=== PATIENT | male | born 1960 | race Caucasian/White ===

== ENCOUNTER → 2017-06-17 12:32 | Outpatient (CLI) | payer BC, SELFPAY ==
--- NOTE | 2017-06-17 12:36 | XR_ITS ---
XR chest 2V Ordering Physician: Rhona Stinson Patient Age: 57 years: Male HISTORY: ITS.REASON: cough Cough congestion smoker short of breath TECHNIQUE: PA and lateral chest COMPARISON :CXR 2 view September 2016 FINDINGS the lung markings are less pronounced and overall the lungs appear clearer than on previous study September 2016. In retrospect there may have been additional interstitial edema or infiltrate previously which is no longer evident today. There is underlying COPD with hyperexpansion. Hyperlucent lungs particularly towards upper lung cisneros. Areas of minimal linear scarring left upper lung a less evident today. Borderline pleural thickening at the upper right chest. No pleural effusion. Question very subtle relative opacity at the left and right infrahilar region bilaterally but I favor this is baseline for this patient with nothing definitely acute. The heart is normal in size. The left gavin upper normal prominence. Right gavin unremarkable. Mediastinum satisfactory. Chest wall and T-spine appear intact. Small calcified granuloma at left midlung IMPRESSION: Nothing definitely acute. Underlying COPD and chronic changes
== END ==
PROVIDERS: PCP Emergency Medicine; Visit Provider Nurse Practitioner Family
DX: J44.9 Chronic obstructive pulmonary disease, unspecified (principal)
CPT/HCPCS: 71046

== ENCOUNTER → 2017-08-28 13:41 | Outpatient (CLI) | payer BC, SELFPAY ==
--- NOTE | 2017-08-28 13:55 | XR_ITS ---
XR chest 2V HISTORY: COPD exacerbation, difficulty breathing ITS.REASON: COPD, EMPHYSEMA ORDERING PHYSICIAN: Amaya العراقي PATIENT AGE: 57 years COMPARISON: 06/17/2017 FINDINGS: The cardiomediastinal silhouette and pulmonary vascularity are within normal limits. Chronic changes are present with COPD. Faint nodular opacities once again noted left upper lobe similar to 09/16/2016. Old granulomatous disease.. No lobar consolidation or collapse. No acute bony abnormalities. IMPRESSION: COPD with chronic changes. Persistent nodular opacities left upper lobe unchanged. No acute finding
== END ==
PROVIDERS: PCP Nurse Practitioner Family; Visit Provider Nurse Practitioner Family
DX: J44.1 Chronic obstructive pulmonary disease with (acute) exacerbation (principal); J43.9 Emphysema, unspecified
CPT/HCPCS: 71046

== ENCOUNTER → 2017-09-30 09:38 | Outpatient (CLI) | payer BC, SELFPAY ==
[2017-09-30 10:15] VITALS: PULSE 90; PULSE 98
== END ==
PROVIDERS: Family Provider Nurse Practitioner Family; PCP Nurse Practitioner Family; Visit Provider Nurse Practitioner Family
DX: J44.1 Chronic obstructive pulmonary disease with (acute) exacerbation (principal); J43.9 Emphysema, unspecified
CPT/HCPCS: 94060; 94640

== ENCOUNTER 2018-01-06 12:25 | Outpatient (RCR) | payer BC, SELFPAY | END 2018-04-17 16:39 | disposition home or self-care (01) | LOC: PT 12:25 | PROVIDERS: Family Provider Nurse Practitioner Family; PCP Nurse Practitioner Family; Visit Provider Internal Medicine Pulmonary Disease | DX: J44.9 Chronic obstructive pulmonary disease, unspecified (principal) | CPT/HCPCS: G0424 ==

== ENCOUNTER → 2018-01-07 09:37 | Outpatient (POV) | payer BC, SELFPAY | PROVIDERS: Family Provider Nurse Practitioner Family; PCP Nurse Practitioner Family; Visit Provider Internal Medicine | DX: Z00.00 Encounter for general adult medical examination without abnormal findings (principal) ==

== ENCOUNTER → 2018-02-07 09:56 | Outpatient (CLI) | payer BC, SELFPAY | PROVIDERS: PCP Nurse Practitioner Family; Visit Provider Internal Medicine | DX: J44.9 Chronic obstructive pulmonary disease, unspecified (principal) | CPT/HCPCS: 94060; 94618; 94640; 94726; 94729 ==

== ENCOUNTER → 2018-03-24 15:46 | Outpatient (CLI) | payer BC, SELFPAY ==
--- NOTE | 2018-03-24 15:52 | XR_ITS ---
XR chest 2V HISTORY: Short of breath tachycardia. Fluid retention atrophy. ITS.REASON: SOB,TACHYCARDIA ORDERING PHYSICIAN: Amaya العراقي PATIENT AGE: 58 years Technique: PA and lateral chest COMPARISON: 3 03/25 and 08/28/2017 CXR FINDINGS: No significant new findings. The lungs are well expanded and with mild chronic changes. No CHF. The heart is normal in size mild tortuous descending aorta is stable. Hilar regions appear satisfactory. Mild pleural thickening along the upper lateral right chest again noted and stable since previous studies. Small calcified granulomata left lung stable and periphery of the right upper lung appears stable as well Some minor scarring at the left upper lobe stable since 2017. . Chest wall T-spine satisfactory. No pleural effusion or pneumothorax. IMPRESSION:.. Stable chest . Nothing acute. Mild chronic changes
[2018-03-24 18:13] LABS: Basophils # 0.1 K/mm3 (0-0.2); Basophils % 0.6 % (0.1-2.0); Eosinophils # 0.3 K/mm3 (0.0-0.4); Eosinophils % 2.4 % (0.1-12.0); Hematocrit 49.7 % (42.0-52.0); Lymphocytes # 2.6 K/mm3 (0.7-4.5); Lymphocytes % 21.7 % (10-50); Mean Corpuscular HGB Conc 34.3 g/dL (31.8-35.4); Mean Corpuscular Hemoglobin 31.9 pg (27.0-31.2); Mean Platelet Volume 7.6 fl (7.4-10.4); Monocytes # 0.7 K/mm3 (0.1-1.0); Monocytes % 5.4 % (1.7-9.3); Neutrophils # 8.4 K/mm3 (1.8-7.8); Neutrophils % 69.9 % (37.0-80.0); Platelet Count 348 K/mm3 (142-424); Red Blood Count 5.34 M/mm3 (4.60-6.20); Red Cell Distribution Width 13.5 % (11.5-17.5); White Blood Count 12.1 K/mm3 (4.8-10.8)
[2018-03-24 19:46] LABS: Alanine Aminotransferase 38 U/L (12-78); Albumin Level 3.1 gm/dL (3.4-5.0); Albumin/Globulin Ratio 0.9 (1.1-1.8); Alkaline Phosphatase 101 U/L (46-116); Anion Gap 13.1 mEq/L (5-15); Aspartate Amino Transferase 13 U/L (15-37); Bilirubin,Total 0.4 mg/dL (0.2-1.0); Blood Urea Nitrogen 11 mg/dL (7-18); Calcium 8.8 mg/dL (8.5-10.1); Carbon Dioxide 26 mmol/L (21.0-32.0); Chloride 103 mmol/L (98-107); Chol/HDL Ratio 4.8 (1-3.5); Cholesterol 231 mg/dL (140-200); Creatinine,Serum 0.95 mg/dL (0.70-1.30); Estimated Glomerular Filt Rate 81 ml/min (>60); GFR (African American) 98 ML/MIN (>60); Globulin 3.6 gm/dl (1.3-3.2); Glucose 92 mg/dL (74-106); HDL Cholesterol 48 mg/dL (27-67); LDL Cholesterol 116 mg/dL (0-130); Potassium 4.1 mmoL/L (3.5-5.1); Sodium 138 mmol/L (136-145); Thyroid Stimulating Hormone 1.71 uIU/ml (0.358-3.740); Total Protein,Serum 6.7 gm/dL (6.4-8.2); Triglycerides 334 mg/dL (30-200); VLDL Cholesterol 67 mg/dL (0-40)
== END ==
PROVIDERS: PCP Nurse Practitioner Family; Visit Provider Nurse Practitioner Family
DX: R00.0 Tachycardia, unspecified (principal); R06.02 Shortness of breath; M79.89 Other specified soft tissue disorders
CPT/HCPCS: 36415; 71046; 80053; 80061; 83880; 84443; 85025; 93005

== ENCOUNTER → 2018-04-04 08:14 | Outpatient (CLI) | payer BC, SELFPAY ==
--- NOTE | 2018-04-04 08:19 | US_ITS ---
US aorta Ordering Physician: Amaya العراقي Patient Age: 58 years: Male HISTORY: ITS.REASON: AAA Patient states he had aneurysm on the a scan TECHNIQUE: Ultrasound abdomen COMPARISON :None available at this facility FINDINGS . At superior abdomen 1 cm below xiphoid: aorta measures 1.76 AP. The 2.8 cm transverse measurement likely reflects tortuosity 3 cm below xiphoid aorta measures 1.77 cm AP and transverse. Dimension. It appears Normal. Caliber 1 cm above umbilicus it measures 1.6 cm AP x 1.75 cm transverse. And appears Normal. Just above the bifurcation aorta is slightly more dilated measuring up to 2.1 cm... Iliac vessels imaged and appear normal caliber measuring less than 1 cm each. IMPRESSION: No significant aortic aneurysmal dilatation Only note very slight dilatation of lower abdominal aorta just above bifurcation, where it dilates slightly up to 2.1 cm diameter.
--- NOTE | 2018-04-04 13:38 | US_ITS ---
US Arterial Ankle Brachial Ind HISTORY: Bilateral claudication. Bilateral rest pain. Previous smoker. Hypertension. TECHNIQUE pulse both legs. Previous smoker. TECHNIQUE: Segmental pressures obtained of both right and left leg. These are compared to brachial blood pressure to yield index at each level sampled including summary AMANDA. The data sheets from the procedure are available in PACS FINDINGS Rest study only performed today No prior studies available for comparison. Blood pressures reported are in millimeters mercury. RIGHT Right AMANDA = 1.09. Right TBI = 1.15 tBI Brachial BP: 124 Thigh BP: BP 120 with index 0.92 Calf BP: BP 140 with index 1.08 Ankle PT: BP 142 with index 1.09 Ankle DP : BP 137 with index 1.05 Digit =BP 149 with index 1.15 LEFT LEG Left AMANDA = 1.08 Left TBI = 0.86 Brachial BPD: 1:30 Thigh BP: BP 133 with index 1.02 Calf BP: BP 117. Index 0.9 Ankle PT:BP 138 index 1.06 Ankle DP: BP 37 with index 1.05 Digit = BP 112 with index 0.86 Pulses and waveforms: Normal --------IMPRESSION:---- . Normal pulses and waveforms bilaterally.. Right AMANDA = 1.09. Right TBI = 1.15 Left AMANDA = 1.08 Left TBI = 0.86
== END ==
PROVIDERS: PCP Nurse Practitioner Family; Visit Provider Nurse Practitioner Family
DX: I71.4 Abdominal aortic aneurysm, without rupture (principal); M79.605 Pain in left leg; M79.604 Pain in right leg; R09.89 Other specified symptoms and signs involving the circulatory and respiratory systems
CPT/HCPCS: 76770; 93922

== ENCOUNTER → 2018-09-09 13:27 | Outpatient (POV) | payer BC, SELFPAY | PROVIDERS: Visit Provider Internal Medicine | DX: Z00.00 Encounter for general adult medical examination without abnormal findings (principal) ==

== ENCOUNTER → 2018-10-02 13:40 | Outpatient (CLI) | payer BC, SELFPAY | PROVIDERS: Visit Provider Nurse Practitioner | DX: E55.9 Vitamin D deficiency, unspecified (principal) | CPT/HCPCS: 36415; 82652 ==

== ENCOUNTER → 2019-05-22 09:46 | Outpatient (CLI) | payer BC, SELFPAY | PROVIDERS: PCP Nurse Practitioner; Visit Provider Internal Medicine Sleep Medicine | DX: J44.9 Chronic obstructive pulmonary disease, unspecified (principal); J45.909 Unspecified asthma, uncomplicated | CPT/HCPCS: 94060; 94726; 94729 ==

== ENCOUNTER 2021-11-23 12:14 | Emergency (ER) | payer MEDICARE, SELFPAY ==
[2021-11-23] VITALS (7 sets, daily range): BP systolic 139–170; BP diastolic 89–114; PULSE 77–91; RESP 16–17; TEMP 36.6–36.8; O2SAT 94–98; BMI 29.1
--- NOTE | 2021-11-23 12:45 | HMH.EDUTC ---
[facility] [place] Disposition Clinical Impression: Headache Qualifiers: Headache type: unspecified Headache chronicity pattern: acute headache Intractability: not intractable Qualified Code(s): R51.9 - Headache, unspecified Hypertension Qualifiers: Hypertension type: unspecified Qualified Code(s): I10 - Essential (primary) hypertension Disposition: Home, Self-Care Condition on Discharge: Good Instructions: Treatments for High Blood Pressure: More Than Just Taking a Pill, DI for Headache Additional Instructions: You were evaluated in the emergency department today for headache and high blood pressure. It is important that you follow-up with your primary care provider over the next 48 hours. 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 Return to the emergency department for any new or worsening symptoms. Prescriptions: lisinopriL [Lisinopril] 10 mg PO DAILY #30 tab Transmission Status: Received by [facility] Referrals: Provider,Referral, [Primary Care Provider] - Medical Decision Making - Medical Records Medical records reviewed: No: I reviewed the patient's medical records. - Collin Inquiry Pt receiving controlled substance: No Vital Signs: 11/23/21 12:37 11/23/21 13:30 11/23/21 14:01 Temperature 98.3 F 98.3 F Temperature Source Oral Oral Pulse Rate 78 Pulse Rate [Left] 91 H 84 Respiratory Rate 16 16 17 Blood Pressure 155/114 H Blood Pressure [Right Arm] 139/105 H 170/103 H Blood Pressure Mean 126 Blood Pressure Mean [Right Arm] 116 125 Blood Pressure Position Blood Pressure Position [Right Arm] Sitting 02 Sat by Pulse Oximetry 95 98 95 Oxygen Delivery Method Room Air 11/23/21 14:30 11/23/21 15:01 11/23/21 16:01 Temperature Temperature Source Pulse Rate 78 77 82 Pulse Rate [Left] Respiratory Rate 17 Blood Pressure 145/89 H 158/90 H 164/92 H Blood Pressure [Right Arm] Blood Pressure Mean 115 120 125 Blood Pressure Mean [Right Arm] Blood Pressure Position Blood Pressure Position [Right Arm] 02 Sat by Pulse Oximetry 97 94 L 96 Oxygen Delivery Method Room Air Room Air 11/23/21 17:00 Temperature 98 F Temperature Source Oral Pulse Rate 87 Pulse Rate [Left] Respiratory Rate 16 Blood Pressure 165/98 H Blood Pressure [Right Arm] Blood Pressure Mean Blood Pressure Mean [Right Arm] Blood Pressure Position Sitting Blood Pressure Position [Right Arm] 02 Sat by Pulse Oximetry Oxygen Delivery Method Room Air - Lab Data Lab Results 11/23/21 13:49: WBC 7.9, RBC 5.67, Hgb 17.0, Hct 51.8, MCV 91.5, MCH 30.0, MCHC 32.8, RDW 13.4, Plt Count 375, MPV 8.3, Neut % (Auto) 50.7, Lymph % (Auto) 34.4, [place] % (Auto) 8.6, Eos % (Auto) 4.3, Baso % (Auto) 1.9, Neut # (Auto) 4.0, Lymph # (Auto) 2.7, [place] # (Auto) 0.7, Eos # (Auto) 0.3, Baso # (Auto) 0.2 11/23/21 13:49: Sodium 141, Potassium 3.5, Chloride 105, Carbon Dioxide 29, Anion Gap 10.5, BUN 9, Creatinine 0.90, Estimated Creat Clear 106, Estimated GFR 86, Est GFR ( Amer) 103, Glucose 108 H, Calcium 9.0, Troponin I < 0.01 11/23/21 13:49: Magnesium 2.2 Result diagrams: 11/23/21 13:49 11/23/21 13:49 Orders (Tests/Meds): ED MEDICATIONS Discontinued Medications Generic Name Dose Route Start Last Admin Trade Name Freq PRN Reason Stop Dose Admin Ketorolac Tromethamine 15 mg 11/23/21 13:53 11/23/21 14:06 Ketorolac 30mg/Ml Vial IV 11/23/21 13:54 15 mg ONCE ONE Administration Metoclopramide HCl 5 mg 11/23/21 13:53 11/23/21 14:05 Metoclopramide Hcl 10mg/2ml Vial IVP 11/23/21 13:54 5 mg ONCE ONE Administration [facility] [place] HPI - General Stated complaint: high BP, headache Time Seen by Provider: 11/23/21 12:45 Mode of Arrival: Ambulatory Source of Information: Patient Limitations: No Limitations Description of Symptoms (Recalled from Triage Doc. by RN): patient comes in with complaints of high blood pressure and headache. patient state
--- NOTE | 2021-11-23 13:05 | ECG_ITS ---
APPROVED REPORT Exam: Resting ECG HR:89 bpm ECG Measurements Heart Rate 89 AXES CO 180 P 51 QRSd 108 QRS 10 QT 359 T 82 QTc 406 Conclusion SINUS RHYTHM Previously noted isolated Q in III Nonspecific IV conduction delay BORDERLINE ECG UNCONFIRMED REPORT Electronically signed by : Rai Bailey MD 11/24/2021 17:04:07
--- NOTE | 2021-11-23 13:30 | XR_ITS ---
FINAL REPORT CLINICAL HISTORY: chest pain, htn COMPARISON: March 24, 2018 FINDINGS: A single portable view of the chest was obtained. The heart size and pulmonary vascularity are within normal limits. The mediastinum is within normal limits. There is mild left base pulmonary opacity favored to be atelectasis or scarring. The bony thorax is intact. IMPRESSION: Mild left base pulmonary opacity favored to be atelectasis or scarring. Reviewed, Interpreted and Dictated by Florentino Martinez III, MD Transcribed by Barbara Peng Authenticated and [facility]
[2021-11-23 14:00] LABS: Chloride 105 mmol/L (98-107); Potassium 3.5 mmoL/L (3.5-5.1); Sodium 141 mmol/L (136-145)
[2021-11-23 14:02] LABS: Basophils # 0.2 K/mm3 (0-0.2); Basophils % 1.9 % (0.1-2.0); Eosinophils # 0.3 K/mm3 (0.0-0.4); Eosinophils % 4.3 % (0.1-12.0); Hematocrit 51.8 % (42.0-52.0); Lymphocytes # 2.7 K/mm3 (0.7-4.5); Lymphocytes % 34.4 % (10-50); Mean Corpuscular HGB Conc 32.8 g/dL (31.8-35.4); Mean Corpuscular Volume 91.5 fl (80-94); Mean Platelet Volume 8.3 fl (7.4-10.4); Monocytes # 0.7 K/mm3 (0.1-1.0); Monocytes % 8.6 % (1.7-9.3); Neutrophils % 50.7 % (37.0-80.0); Platelet Count 375 K/mm3 (142-424); Red Blood Count 5.67 M/mm3 (4.60-6.20); Red Cell Distribution Width 13.4 % (11.5-17.5); White Blood Count 7.9 K/mm3 (4.8-10.8)
[2021-11-23 14:03] LABS: Blood Urea Nitrogen 9 mg/dl (9-20); Creatinine Clearance Estimated 106 mL/min (50-200); Estimated Glomerular Filt Rate 86 ml/min (>60); GFR (African American) 103 ML/MIN (>60)
[2021-11-23 14:04] LABS: Anion Gap 10.5 mEq/L (5-15); Carbon Dioxide 29 mmol/L (22.0-30.0); Glucose 108 mg/dl (74-100); Magnesium 2.2 mg/dl (1.6-2.3)
[2021-11-23 14:16] LABS: Troponin I < 0.01 ng/ml (0.00-0.034)
--- NOTE | 2021-11-23 14:30 | PC.NURSE ---
pt updated on plan of care
--- NOTE | 2021-11-23 14:31 | HMH.EDGENADL ---
ED Disposition Clinical Impression: Headache Qualifiers: Headache type: unspecified Headache chronicity pattern: acute headache Intractability: not intractable Qualified Code(s): R51.9 - Headache, unspecified Hypertension Qualifiers: Hypertension type: unspecified Qualified Code(s): I10 - Essential (primary) hypertension Disposition: Home, Self-Care Condition on Discharge: Good Instructions: Treatments for High Blood Pressure: More Than Just Taking a Pill, DI for Headache Additional Instructions: You were evaluated in the emergency department today for headache and high blood pressure. It is important that you follow-up with your primary care provider over the next 48 hours. 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 Return to the emergency department for any new or worsening symptoms. Prescriptions: lisinopriL [Lisinopril] 10 mg PO DAILY #30 tab Transmission Status: Received by [facility] Referrals: Provider,Referral, [Primary Care Provider] - - Critical Care Critical Care Time: No Attestation: On 11/23/21, the high probability of a clinically significant, sudden or life threatening deterioration of the following system(s) required my full and direct attention, intervention and personal management. The time I documented below is in addition to time spent performing reported procedures but includes the following listed in this critical care notation. Medical Decision Making - Collin Inquiry Pt receiving controlled substance: No Vital Signs: 11/23/21 12:37 11/23/21 13:30 11/23/21 14:01 Temperature 98.3 F 98.3 F Temperature Source Oral Oral Pulse Rate 78 Pulse Rate [Left] 91 H 84 Respiratory Rate 16 16 17 Blood Pressure 155/114 H Blood Pressure [Right Arm] 139/105 H 170/103 H Blood Pressure Mean 126 Blood Pressure Mean [Right Arm] 116 125 Blood Pressure Position Blood Pressure Position [Right Arm] Sitting 02 Sat by Pulse Oximetry 95 98 95 Oxygen Delivery Method Room Air 11/23/21 14:30 11/23/21 15:01 11/23/21 16:01 Temperature Temperature Source Pulse Rate 78 77 82 Pulse Rate [Left] Respiratory Rate 17 Blood Pressure 145/89 H 158/90 H 164/92 H Blood Pressure [Right Arm] Blood Pressure Mean 115 120 125 Blood Pressure Mean [Right Arm] Blood Pressure Position Blood Pressure Position [Right Arm] 02 Sat by Pulse Oximetry 97 94 L 96 Oxygen Delivery Method Room Air Room Air 11/23/21 17:00 Temperature 98 F Temperature Source Oral Pulse Rate 87 Pulse Rate [Left] Respiratory Rate 16 Blood Pressure 165/98 H Blood Pressure [Right Arm] Blood Pressure Mean Blood Pressure Mean [Right Arm] Blood Pressure Position Sitting Blood Pressure Position [Right Arm] 02 Sat by Pulse Oximetry Oxygen Delivery Method Room Air - Lab Data Lab Results 11/23/21 13:49: WBC 7.9, RBC 5.67, Hgb 17.0, Hct 51.8, MCV 91.5, MCH 30.0, MCHC 32.8, RDW 13.4, Plt Count 375, MPV 8.3, Neut % (Auto) 50.7, Lymph % (Auto) 34.4, [place] % (Auto) 8.6, Eos % (Auto) 4.3, Baso % (Auto) 1.9, Neut # (Auto) 4.0, Lymph # (Auto) 2.7, [place] # (Auto) 0.7, Eos # (Auto) 0.3, Baso # (Auto) 0.2 11/23/21 13:49: Sodium 141, Potassium 3.5, Chloride 105, Carbon Dioxide 29, Anion Gap 10.5, BUN 9, Creatinine 0.90, Estimated Creat Clear 106, Estimated GFR 86, Est GFR ( Amer) 103, Glucose 108 H, Calcium 9.0, Troponin I < 0.01 11/23/21 13:49: Magnesium 2.2 Result diagrams: 11/23/21 13:49 11/23/21 13:49 Orders (Tests/Meds): ED MEDICATIONS Discontinued Medications Generic Name Dose Route Start Last Admin Trade Name Ruddy PRN Reason Stop Dose Admin Ketorolac Tromethamine 15 mg 11/23/21 13:53 11/23/21 14:06 Ketorolac 30mg/Ml Vial IV 11/23/21 13:54 15 mg ONCE ONE Administration Metoclopramide HCl 5 mg 11/23/21 13:53 11/23/21 14:05 Metoclopramide Hcl 10mg/2ml Vial IVP 11/23/21 13:54 5 mg ONCE ONE Administration - EC
--- NOTE | 2021-11-23 14:33 | CT_ITS ---
FINAL REPORT CLINICAL HISTORY: headache FINDINGS: Axial images of the head were obtained without contrast. Coronal reformatted images were also obtained.This study was performed with techniques to keep radiation doses as low as reasonably achievable (ALARA). Individualized dose reduction techniques using automated exposure control or adjustment of mA and/or kV according to the patient's size were employed. There is no evidence of intracranial hemorrhage or mass. The ventricular size is within normal limits. There is no evidence of shift of the midline structures. No abnormal extra axial fluid collection is identified. No skull abnormality is seen on the bone window images. There is mucosal thickening in the ethmoid air cells. IMPRESSION: No acute intracranial abnormality. Reviewed, Interpreted and Dictated by Florentino Martinez III, MD Transcribed by Ford Parikh Authenticated and [facility]
--- NOTE | 2021-11-23 14:40 | PC.NURSE ---
Rounded on patient at this time. Patient is sitting up on ED stretcher, dozing on and off. He reports he is doing fine and does not need anything. He is aware that we are waiting on test results to come back. Call light within reach
--- NOTE | 2021-11-23 15:45 | ECG_ITS ---
APPROVED REPORT Exam: Resting ECG HR:78 bpm ECG Measurements Heart Rate 78 AXES OK 201 P 48 QRSd 103 QRS 32 QT 380 T 76 QTc 414 Conclusion SINUS RHYTHM NONSPECIFIC T-WAVE ABNORMALITY BORDERLINE ECG UNCONFIRMED REPORT Electronically signed by : Rai Bailey MD 11/24/2021 17:02:46
--- NOTE | 2021-11-23 15:54 | PC.NURSE ---
repeat EKG performed and given to ER MD; pt requesting something to eat. ER MD reports he can have some crackers and since his imaging results are back, she is planning to dispo him. Pt given that update and has no questions. He is eating silas crackers and drinking a pepsi at this time
== END 2021-11-23 17:00 | disposition home or self-care (01) ==
LOC: UTC 12:24 → ER 13:23
PROVIDERS: Emergency Provider Emergency Medicine
DX: R00.2 Palpitations (principal); I10 Essential (primary) hypertension; R51.9 Headache, unspecified; K21.9 Gastro-esophageal reflux disease without esophagitis; J98.4 Other disorders of lung; Z79.51 Long term (current) use of inhaled steroids; Z88.5 Allergy status to narcotic agent; Z85.9 Personal history of malignant neoplasm, unspecified; Z87.891 Personal history of nicotine dependence; Z82.49 Family history of ischemic heart disease and other diseases of the circulatory system; Z82.5 Family history of asthma and other chronic lower respiratory diseases
CPT/HCPCS: 70450; 71045; 80048; 83735; 84484; 85025; 93005; 96374; 96375; 99285

== ENCOUNTER 2022-03-03 22:35 | Emergency (ER) | payer MEDICARE, SELFPAY ==
[2022-03-03 22:37] VITALS: BP 111/81; PULSE 90; RESP 16; TEMP 36.6; O2SAT 97; BMI 30.5
--- NOTE | 2022-03-03 22:50 | XR_ITS ---
PROCEDURE INFORMATION: Exam: XR Chest Exam date and time: 03/03/2022 10:45 PM Age: 62 years old Clinical indication: Cough TECHNIQUE: Imaging protocol: Radiologic exam of the chest. Views: 2 views. COMPARISON: CR XR CHEST PORTABLE 11/23/2021 2:09 PM FINDINGS: Lungs: The lungs are mildly hyperinflated. No focal consolidation. Pleural spaces: No pneumothorax or pleural effusion. Heart/Mediastinum: The cardiomediastinal silhouette has normal size and contour. Bones/joints: No displaced fracture. Intraperitoneal space: The visualized abdomen is unremarkable. IMPRESSION: No acute cardiopulmonary disease.
--- NOTE | 2022-03-03 22:53 | PC.NURSE ---
RT at BS to administer breathing treatment
--- NOTE | 2022-03-03 22:53 | PC.NURSE ---
Pt gone to RAD for CXR
--- NOTE | 2022-03-03 22:55 | PC.NURSE ---
Pt back from RAD
[2022-03-03 22:56] LABS: Microscopic, Urine URINE MICROSCOPIC (MICROSCOPIC)
[2022-03-03 23:00] LABS: Appearance,Urine CLEAR (Clear); Bilirubin,Urine Negative (Negative); Blood, Urine TRACE-I (Negative); Color,Urine YELLOW (Yellow); Glucose,Urine (UA) Negative (Negative); Ketones,Urine Negative (Negative); Leukocyte Esterase,Urine Negative (Negative); Nitrate,Urine Negative (Negative); Protein,Urine TRACE (Negative); Specific Gravity, Urine >= 1.030 (1.005-1.030); Urobilinogen,Urine 0.2 EU/dl (0.2)
[2022-03-03 23:05] LABS: Mucus,Urine 4+ /lpf; WBC,Urine Occasional #/hpf (0-3)
[2022-03-03 23:12] VITALS: PULSE 76; PULSE 77
[2022-03-03 23:12] LABS: Influenza A, PCR Not Detected (NotDetected); Influenza B, PCR Not Detected (NotDetected)
--- NOTE | 2022-03-03 23:12 | HMH.EDURI ---
Discharge Plan Disposition Patient Disposition: Home, Self-Care Prescriptions Prescriptions: New benzonatate 100 mg Capsule 100 mg PO Q8H Qty: 20 0RF prednisone [prednisone] 20 mg tablet 20 mg PO BID Qty: 10 0RF No Action albuterol sulfate 90 mcg/actuation aerosol powdr breath activated 2 inh INHALATION Q4-6H PRN (Reason: shortness of breath or wheezing) Qty: 1 2RF dupilumab 300 mg/2 mL syringe SQ albuterol sulfate 90 MCG HFA aerosol inhaler 1 puff inhalation DAILY tiotropium bromide 18 MCG capsule, w/inhalation device 1 puff inhalation DAILY budesonide-formoterol 160-4.5 HFA aerosol inhaler 1 puff inhalation DAILY lisinopril 10 MG tablet 10 mg PO DAILY Qty: 30 1RF Referrals Follow up/Referrals: Provider,Referral, MD [Primary Care Provider] - See instructions Clinical Impressions Clinical Impression: COVID-19 Instructions Patient Instructions: DI for COVID-19 (Suspected or Confirmed ) Discharge ED Provider: Joe Herrmann URI/Sore Throat HPI General Chief Complaint: Upper Respiratory Infection Stated Complaint: Coughing,Sore stomach and chest Time Seen by Provider: 03/03/22 22:45 Mode of Arrival: Ambulatory Source of Information: Patient and Medical Record Limitations: No Limitations Description of Symptoms (Recalled from ER Triage Doc. by RN): pt c/o cough, and blood in urine that started yesterday History of Present Illness HPI Narrative: uri sx and cough and reported blood in urine w/o trauma or fever Complaint: cough Onset (ago): day(s) Duration: intermittent Severity: moderate Able to tolerate fluids by mouth: Yes Associated symptoms: denies other symptoms Treatments prior to arrival: none Related Data Home Medications Medication Instructions Recorded Confirmed albuterol sulfate 90 mcg/actuation 1 puff inhalation DAILY Breathing 12/23/17 05/18/19 aerosol inhaler problems budesonide-formoterol HFA 160 1 puff inhalation DAILY Breathing 12/23/17 05/18/19 mcg-4.5 mcg/actuation aerosol problems inhaler tiotropium bromide 18 mcg capsule 1 puff inhalation DAILY Breathing 12/23/17 05/18/19 with inhalation device problems dupilumab 300 mg/2 mL subcutaneous mg SQ 05/18/19 05/18/19 syringe Previous Rx's Medication Instructions Recorded albuterol sulfate 90 mcg/actuation 2 inh inhalation Q4-6H PRN 06/17/17 breath activated powder inhaler shortness of breath or wheezing #1 ea lisinopril 10 mg tablet 10 mg PO DAILY #30 tabs 11/23/21 benzonatate 100 mg capsule 100 mg PO Q8H #20 caps 03/04/22 prednisone 20 mg tablet 20 mg PO BID #10 tabs 03/04/22 Allergies Allergy/AdvReac Type Severity Reaction Status Date / Time codeine [CODEINE] Allergy Unknown NA-NAUSEA/V Verified 05/18/19 10:01 OMITING PFSH PFSH Social History Smoking Status: Never smoker alcohol intake: never substance use type: denies use current occupational status: employed Travel in the last 8 weeks: Inside the [place] household members: family housing: house caffeine: Yes ROS Obtained: Yes All systems reviewed & no additional complaints except as documented Physical Exam General General appearance: alert Head Head exam: normocephalic Eye Eye exam: Present PERRL and EOMI ENT ENT exam: Present mucous membranes moist Neck Neck exam: Present trachea midline Respiratory Respiratory exam: Present other (rhonchi); Absent respiratory distress Cardiovascular Cardiovascular exam: Present regular rate; Absent systolic murmur or rubs Abdominal Exam Abdominal exam: Present soft Extremities Exam Extremities exam: Present normal inspection Back Exam Back exam: Present full ROM Neurological Exam Neurological exam: Present alert, oriented X3 and CN II-XII intact; Absent motor sensory deficit Psychiatric Psychiatric exam: Present normal affect Skin Skin exam: Absent rash Medical Decision Making Medical Records Medical debby
[2022-03-03 23:16] LABS: Basophils # 0.1 K/mm3 (0-0.2); Basophils % 1.4 % (0.1-2.0); Eosinophils # 0.1 K/mm3 (0.0-0.4); Eosinophils % 1.7 % (0.1-12.0); Hematocrit 49.5 % (42.0-52.0); Lymphocytes # 1.1 K/mm3 (0.7-4.5); Mean Corpuscular HGB Conc 32.3 g/dL (31.8-35.4); Mean Corpuscular Hemoglobin 30.2 pg (27.0-31.2); Mean Corpuscular Volume 93.4 fl (80-94); Mean Platelet Volume 7.7 fl (7.4-10.4); Monocytes # 0.7 K/mm3 (0.1-1.0); Monocytes % 9.8 % (1.7-9.3); Neutrophils % 71.1 % (37.0-80.0); Platelet Count 323 K/mm3 (142-424); Red Cell Distribution Width 12.7 % (11.5-17.5)
[2022-03-03 23:20] LABS: Chloride 105 mmol/L (98-107); Potassium 3.2 mmoL/L (3.5-5.1); Sodium 137 mmol/L (136-145)
[2022-03-03 23:23] LABS: Alanine Aminotransferase 33 U/L (12-78); Albumin Level 3.8 g/dl (3.5-5.0); Albumin/Globulin Ratio 1.3 (1.1-1.8); Alkaline Phosphatase 102 U/L (38-126); Anion Gap 11.2 mEq/L (5-15); Aspartate Amino Transferase 28 U/L (17-59); Bilirubin,Total 0.4 mg/dl (0.2-1.3); Blood Urea Nitrogen 4 mg/dl (9-20); Calcium 8.4 mg/dl (8.4-10.2); Carbon Dioxide 24 mmol/L (22.0-30.0); Creatinine Clearance Estimated 109 mL/min (50-200); Estimated Glomerular Filt Rate 75 ml/min (>60); GFR (African American) 91 ML/MIN (>60); Glucose 91 mg/dl (74-100); Total Protein,Serum 6.8 g/dl (6.3-8.2)
[2022-03-03 23:30] VITALS: BP 107/50; PULSE 91; O2SAT 93
[2022-03-03 23:32] LABS: NT Pro Brain Natriuretic Pep. 36.3 pg/mL (0-125)
[2022-03-03 23:42] LABS: Coronavirus 19, PCR Detected (NotDetected)
[2022-03-04 00:20] VITALS: BP 107/50; PULSE 91; RESP 16; TEMP 36.6; O2SAT 97
== END 2022-03-04 00:22 | disposition home or self-care (01) ==
PROVIDERS: Emergency Provider Emergency Medicine
DX: U07.1 COVID-19 (principal)
CPT/HCPCS: 71046; 80053; 81001; 83880; 85025; 94640; 96374; 99285; C9803; U0003; U0005

== ENCOUNTER 2024-06-13 03:25 | Emergency (ER) | payer MEDICARE, OTHER, SELFPAY ==
[2024-06-13] VITALS (9 sets, daily range): BP systolic 129–158; BP diastolic 74–115; PULSE 58–77; RESP 14–20; TEMP 36.6; O2SAT 95–98; BMI 30.5
--- NOTE | 2024-06-13 03:42 | ECG_ITS ---
APPROVED REPORT Exam: Resting ECG HR:69 bpm ECG Measurements Heart Rate 69 AXES DC 164 P 42 QRSd 108 QRS 28 QT 364 T 65 QTc 383 Conclusion SINUS RHYTHM WITH SINUS ARRHYTHMIA NORMAL ECG UNCONFIRMED REPORT Electronically signed by : VETO SUMNER, 06/13/2024 05:43:08
--- NOTE | 2024-06-13 03:51 | XR_ITS ---
PROCEDURE INFORMATION: Exam: XR Chest Exam date and time: 06/13/2024 4:12 AM Age: 64 years old Clinical indication: Pain; Left-sided; Additional info: Cp TECHNIQUE: Imaging protocol: Radiologic exam of the chest. Views: 1 view. COMPARISON: CR XR CHEST 2V 03/03/2022 10:45 PM FINDINGS: Lungs: Unremarkable. No consolidation. Pleural spaces: Unremarkable. No pleural effusion. No pneumothorax. Heart/Mediastinum: Unremarkable. No cardiomegaly. Bones/joints: Unremarkable. IMPRESSION: No acute findings.
[2024-06-13 04:02] LABS: Alanine Aminotransferase 31 U/L (12-78); Albumin Level 4.3 g/dl (3.5-5.0); Albumin/Globulin Ratio 1.4 (1.1-1.8); Alkaline Phosphatase 89 U/L (38-126); Anion Gap 9.9 mEq/L (5-15); Aspartate Amino Transferase 29 U/L (17-59); Bilirubin,Total 0.6 mg/dl (0.2-1.3); Blood Urea Nitrogen 11 mg/dl (9-20); Carbon Dioxide 26 mmol/L (22.0-30.0); Chloride 105 mmol/L (98-107); Creatinine Clearance Estimated 106 mL/min (50-200); Estimated Glomerular Filt Rate 75 ml/min (>60); GFR (African American) 91 ML/MIN (>60); Glucose 104 mg/dl (74-100); Potassium 3.9 mmoL/L (3.5-5.1); Sodium 137 mmol/L (136-145); Total Protein,Serum 7.3 g/dl (6.3-8.2)
[2024-06-13] MEDS: ASPIRIN 81MG CHEWABLE TABLET 324 MG PO (04:04)
[2024-06-13 04:06] LABS: D-Dimer 0.27 ug/mL (0.0-0.5)
--- NOTE | 2024-06-13 04:12 | PC.NURSE ---
Pt in SR per continuous heart monitor
--- NOTE | 2024-06-13 04:13 | PC.NURSE ---
CXR done at bedside
[2024-06-13 04:15] LABS: Troponin I < 0.01 ng/ml (0.00-0.034)
[2024-06-13 04:27] LABS: Basophils # 0.1 K/mm3 (0-0.2); Basophils % 1.1 % (0.1-2.0); Eosinophils # 0.3 K/mm3 (0.0-0.4); Eosinophils % 2.6 % (0.1-12.0); Hematocrit 52.1 % (42.0-52.0); Hemoglobin 17.5 g/dL (14.1-18.0); Lymphocytes # 3.2 K/mm3 (0.7-4.5); Lymphocytes % 33.2 % (10-50); Mean Corpuscular HGB Conc 33.6 g/dL (31.8-35.4); Mean Corpuscular Hemoglobin 29.1 pg (27.0-31.2); Mean Corpuscular Volume 86.5 fl (80-94); Mean Platelet Volume 10.1 fl (7.4-10.4); Monocytes # 0.8 K/mm3 (0.1-1.0); Monocytes % 8.1 % (1.7-9.3); Neutrophils # 5.3 K/mm3 (1.8-7.8); Neutrophils % 54.4 % (37.0-80.0); Platelet Count 385 K/mm3 (142-424); Red Blood Count 6.02 M/mm3 (4.60-6.20); Red Cell Distribution Width 12.5 % (11.5-17.5); White Blood Count 9.8 K/mm3 (4.8-10.8)
[2024-06-13 04:49] LABS: HIV Combo NEGATIVE (Negative)
[2024-06-13 04:56] LABS: Hepatitis C Ab Qual. W/ RFX NEGATIVE (Negative)
--- NOTE | 2024-06-13 05:28 | ED_ITS ---
Discharge Plan Disposition Patient Disposition: Home, Self-Care Prescriptions Prescriptions: No Action albuterol sulfate 90 mcg/actuation aerosol powdr breath activated 2 inh INHALATION Q4-6H PRN (Reason: shortness of breath or wheezing) Qty: 1 2RF albuterol sulfate 90 MCG HFA aerosol inhaler 1 puff inhalation DAILY tiotropium bromide 18 MCG capsule, w/inhalation device 1 puff inhalation DAILY budesonide-formoterol 160-4.5 HFA aerosol inhaler 1 puff inhalation DAILY lisinopril 10 MG tablet 10 mg PO DAILY Qty: 30 1RF prednisone [prednisone] 20 mg tablet 20 mg PO BID Qty: 10 0RF Referrals Follow up/Referrals: Provider,Referral, MD [Primary Care Provider] - See instructions Activity Restrictions/Add. Instructions Additional Instructions/Restrictions: Please follow-up with your primary care provider. Please return to the emergency department if you develop any new or worsening symptoms or become concerned for your health. Clinical Impressions Clinical Impression: Chest pain Print Language Print Language: Frisian Discharge ED Provider: Jorge Griffith Adult HPI General Chief complaint: Chest Pain Stated complaint: high blood pressure, chest tightness, pain Time Seen by Provider: 06/13/24 03:35 Mode of Arrival: Ambulatory Source of Information: Patient Description of Symptoms (Recalled from ER Triage Doc. by RN): Patient started having chest pain around 9pm; states he was taking his blood pressure medicine but his bp stayed high Around 160 systolic. States he was taking blood pressure medicine that startes with a vignesh . States his chest pain is around a 1/10 for pain and that nothing makes it worse/better. History of Present Illness HPI narrative: 64-year-old male with history of hypertension and COPD presents for chest pain. He reports that he had chest tightness and shortness blood pressure and it was higher than normal so he took extra blood pressure medication. He will back to sleep and woke up and his chest pain was still there so he came to the ER. He reports his chest pain is essentially gone at this point. Denies shortness of breath fever chills infectious symptoms or other symptoms Related Data Home Medications ?Medication ?Instructions ?Recorded ?Confirmed albuterol sulfate 90 mcg/actuation 1 puff inhalation DAILY Breathing 12/23/17 06/13/24 aerosol inhaler problems budesonide-formoterol HFA 160 1 puff inhalation DAILY Breathing 12/23/17 06/13/24 mcg-4.5 mcg/actuation aerosol problems inhaler tiotropium bromide 18 mcg capsule 1 puff inhalation DAILY Breathing 12/23/17 06/13/24 with inhalation device problems Previous Rx's ?Medication ?Instructions ?Recorded albuterol sulfate 90 mcg/actuation 2 inh inhalation Q4-6H PRN 06/17/17 breath activated powder inhaler shortness of breath or wheezing #1 ea lisinopril 10 mg tablet 10 mg PO DAILY #30 tabs 11/23/21 prednisone 20 mg tablet 20 mg PO BID #10 tabs 03/04/22 Allergies Allergy/AdvReac Type Severity Reaction Status Date / Time codeine (CODEINE) Allergy Unknown NA-NAUSEA/V Verified 05/18/19 10:01 OMITING [facility] Disclaimer: The information contained in this section may have been updated after the patient was seen, as this information can be updated by other users. Social History Smoking Status: Unknown if ever smoked alcohol intake: never substance use type: denies use current occupational status: employed Travel in the last 8 weeks: Inside the [place] household members: family housing: house caffeine: Yes Have you lived/traveled outside US in past 30 days?: No Contact w/someone who lives/traveled outside US past 30 days?: No Exposure to someone with infectious disease in past 14 days?: No Do you have a fever (greater than 100.4 F or 38 C)?: No Have you tested positive for COVID-19: No Exposed to someone with COVID-19 in past 14 days?: No Do you have a sore throat?: No Do you have a cough?: No Do you have any weakness?: No Do you have any diarrhea?: No Are you experiencing any unusual bleeding?: No Do you have any muscle aches/pain?: No Do you have any abdominal pain?: No Are you experiencing loss of taste or smell?: No Other Medical History Have you received the Flu Vaccine for this season: Yes Have you received the Pneumonia Vaccine: Yes ROS Obtained: Yes All systems reviewed & no additional complaints except as documented Physical Exam General General appearance: alert and in no apparent distress Head Head exam: atraumatic and normocephalic Eye Eye exam: Present normal appearance, PERRL and EOMI ENT ENT exam: Present normal oropharynx and normal external ear exam Neck Neck exam: Present normal inspection and full ROM Chest Chest inspection: Present normal inspection and symmetric chest wall rise; Absent tenderness Respiratory Respiratory exam: Present normal lung sounds bilaterally; Absent respiratory distress Cardiovascular Cardiovascular exam: Present regular rate and normal rhythm Abdominal Exam Abdominal exam: Present soft; Absent distention, tenderness or guarding Extremities Exam Extremities exam: Present normal inspection; Absent edema or joint swelling Back Exam Back exam: Present normal inspection; Absent tenderness Neurological Exam Neurological exam: Present alert and oriented X3; Absent motor sensory deficit Psychiatric Psychiatric exam: Present normal affect and normal mood Skin Skin exam: Present warm, dry and normal color Lymphatic Lymphatic Findings: no adenopathy Medical Decision Making Medical Records Medical records reviewed: Yes I reviewed the patient's medical records. Screening: Per USPSTF and CDC recommendations, given the prevalence of disease in our region, it is our hospital?s policy to screen for HIV and viral Hepatitis for all patients aged 18 and over and those with ongoing risk factors. Collin Inquiry Pt receiving controlled substance: No Collin was queried for this patient: No Vital Signs: 06/13/24 03:26 06/13/24 03:41 06/13/24 04:00 Temperature 97.9 F Temperature Source Oral Pulse Rate 73 65 Pulse Rate [Right Radial] 73 Respiratory Rate 16 14 Blood Pressure 136/84 Blood Pressure [Right Arm] 154/98 H Blood Pressure Mean [Right Arm] 116 Blood Pressure Source [Right Arm] Automatic Cuff Blood Pressure Position [Right Arm] Supine 02 Sat by Pulse Oximetry 95 95 Oxygen Delivery Method Room Air 06/13/24 04:30 06/13/24 05:00 06/13/24 05:15 Temperature Temperature Source Pulse Rate 71 71 58 L Pulse Rate [Right Radial] Respiratory Rate 15 18 20 Blood Pressure 149/93 H 149/115 H Blood Pressure [Right Arm] Blood Pressure Mean [Right Arm] Blood Pressure Source [Right Arm] Blood Pressure Position [Right Arm] 02 Sat by Pulse Oximetry 97 95 95 Oxygen Delivery Method Room Air Room Air 06/13/24 05:30 06/13/24 06:30 Temperature Temperature Source Pulse Rate 58 L 77 Pulse Rate [Right Radial] Respiratory Rate 19 17 Blood Pressure 129/79 158/99 H Blood Pressure [Right Arm] Blood Pressure Mean [Right Arm] Blood Pressure Source [Right Arm] Blood Pressure Position [Right Arm] 02 Sat by Pulse Oximetry 95 96 Oxygen Delivery Method Room Air Lab Data Lab results reviewed: Yes I reviewed the patient's lab results. Lab Results 06/13/24 03:35: WBC 9.8, RBC 6.02, Hgb 17.5, Hct 52.1 H, MCV 86.5, MCH 29.1, MCHC 33.6, RDW 12.5, Plt Count 385, MPV 10.1, Neut % (Auto) 54.4, Lymph % (Auto) 33.2, Cavalier % (Auto) 8.1, Eos % (Auto) 2.6, Baso % (Auto) 1.1, Neut # (Auto) 5.3, Lymph # (Auto) 3.2, Cavalier # (Auto) 0.8, Eos # (Auto) 0.3, Baso # (Auto) 0.1, D- Dimer 0.27, Sodium 137, Potassium 3.9, Chloride 105, Carbon Dioxide 26, Anion Gap 9.9, BUN 11, Creatinine 1.00, Estimated Creat Clear 106, Estimated GFR 75, Est GFR ( Amer) 91, Glucose 104 H, Calcium 9.0, Total Bilirubin 0.6, AST 29, ALT 31, Alkaline Phosphatase 89, Troponin I < 0.01, Total Protein 7.3, Albumin 4.3, Globulin 3.0, Albumin/Globulin Ratio 1.4, HCV Ab NABILA w/Rflx PCR Qn Negative, HIV Ag/Ab Combo Qual Negative 06/13/24 06:13: Troponin I < 0.01 06/13/24 03:35 06/13/24 03:35 Orders (Tests/Meds): ED MEDICATIONS Discontinued Medications Generic Name Dose Route Start Last Admin Trade Name Franciscoq PRN Reason Stop Dose Admin Aspirin 324 mg 06/13/24 03:51 06/13/24 04:04 Aspirin 81mg Chewable Tablet PO 06/13/24 03:52 324 mg ONCE ONE Administration ORDERS Category Date Time Status CXR --portable [XR chest portable] Stat Exams 06/13/24 03:51 Completed CBC w/Auto Diff [Complete Blood Count Auto Diff] Stat Lab 06/13/24 03:35 Completed CMP [Comprehensive Metabolic Panel] Stat Lab 06/13/24 03:35 Completed D-Dimer Stat Lab 06/13/24 03:35 Completed HIV Combo Stat Lab 06/13/24 03:35 Completed Hepatitis C Ab Qual. W/ RFX Stat Lab 06/13/24 03:35 Completed Troponin I Q3H Lab 06/13/24 03:35 Completed Troponin I Q3H Lab 06/13/24 06:13 Completed HEART Score History (anamnesis): Moderately suspicious ECG: Normal Age: 45-65 years Risk factors: 1-2 risk factors Troponin: </= normal limit HEART Score: 3 Medical Decision Narrative: 64-year-old male with history of hypertension COPD presents for chest pain. History was obtained via interactive discussion with patient chart review. On arrival, patient is [afebrile, hemodynamically stable, satting appropriately, alert, oriented x4, GCS 15], moving all extremities spontaneously. Full physical exam performed and significant for no significant physical exam abnormalities Differential includes but is not limited to ACS, PE, musculoskeletal pain, hypertensive urgency, hypertensive emergency, GERD,. Patient was given aspirin for symptomatic management and correction of underlying abnormalities. Workup initiated including CBC CMP troponin EKG D- dimer chest x-ray. On re-evaluation, patient [remains afebrile, HD stable.] Laboratory workup independently interpreted by me and significant for negative initial troponin, negative D-dimer, no significant electrolyte derangement or leukocytosis. Imaging independently interpreted by me and significant for clear lungs bilaterally without focal opacity. See radiology read for full review of final results. EKG independently interpreted by me and significant for normal sinus rhythm, rate of 69, no concerning ischemic changes, no arrhythmia. Patient was placed in ED observation status for continued cardiac monitoring and serial troponins. On reassessment patient remains chest pain-free and hemodynamically stable. On my interpretation of classroom monitor, patient remains in sinus rhythm. Blood pressure improved. Second troponin returns undetectably low. Given this, patient was deemed appropriate for discharge with outpatient management. Patient was discharged in stable condition with return precautions. Procedures Risk/Benefits of Procedure(s) Were Explained: Yes Critical Care Critical Care Time Critical Care Time: No
[2024-06-13 06:47] LABS: Troponin I < 0.01 ng/ml (0.00-0.034)
--- NOTE | 2024-06-13 06:57 | PC.NURSE ---
IV removed; catheter tip intact; bleeding controlled.
== END 2024-06-13 07:02 | disposition home or self-care (01) ==
PROVIDERS: Emergency Provider Emergency Medicine
DX: R07.9 Chest pain, unspecified (principal); I10 Essential (primary) hypertension
CPT/HCPCS: 71045; 80053; 84484; 85025; 85378; 86803; 87389; 93005; 99284

== ENCOUNTER 2024-06-13 22:49 | Emergency (ER) | payer MEDICARE, OTHER, SELFPAY ==
[2024-06-13 22:59] VITALS: BP 159/89; PULSE 70; RESP 20; TEMP 36.4; O2SAT 94; BMI 30.5
--- NOTE | 2024-06-13 23:20 | ED_ITS ---
Discharge Plan Disposition Patient Disposition: Home, Self-Care Prescriptions Prescriptions: New hydralazine 10 mg tablet 10 mg PO TID PRN (Reason: hypertension) Qty: 30 0RF No Action albuterol sulfate 90 mcg/actuation aerosol powdr breath activated 2 inh INHALATION Q4-6H PRN (Reason: shortness of breath or wheezing) Qty: 1 2RF albuterol sulfate 90 MCG HFA aerosol inhaler 1 puff inhalation DAILY tiotropium bromide 18 MCG capsule, w/inhalation device 1 puff inhalation DAILY budesonide-formoterol 160-4.5 HFA aerosol inhaler 1 puff inhalation DAILY lisinopril 10 MG tablet 10 mg PO DAILY Qty: 30 1RF prednisone [prednisone] 20 mg tablet 20 mg PO BID Qty: 10 0RF Referrals Follow up/Referrals: Provider,Referral, [Primary Care Provider] - See instructions Activity Restrictions/Add. Instructions Additional Instructions/Restrictions: Please take hydralazine as needed for HTN. Please follow up with your PCP. Please return to the emergency department with any new or worsening symptoms or if you become concerned for your health. Clinical Impressions Clinical Impression: Asymptomatic hypertension Print Language Print Language: Armenian Discharge ED Provider: Jorge Griffith General Adult HPI General Chief complaint: Recheck/Abnormal Lab/Rx Stated complaint: HBP 170/116 Time Seen by Provider: 06/13/24 23:00 Mode of Arrival: Ambulatory Source of Information: Patient Description of Symptoms (Recalled from ER Triage Doc. by RN): pt reports he checked his blood pressure and it was elevated to the 170s systolic, he took another dose of his BP meds at 2200. He denies any headaches or vision changes but did have ringing in her ears History of Present Illness HPI narrative: 64-year-old male with of hypertension, COPD presents for hypertension. He reports his blood pressure was up to 170 systolic and he had some ringing in his ears but denied any headache chest pain shortness of breath or other symptoms he took an additional dose of his blood pressure medications prior to arrival. On arrival his blood pressure is 140 systolic on my initial assessment. He is asymptomatic at this time. I saw him yesterday for chest pain for which she had a negative workup. His blood pressure was mildly elevated at that time but also spontaneously improved. He is on valsartan only for pressure according. Related Data Home Medications ?Medication ?Instructions ?Recorded ?Confirmed albuterol sulfate 90 mcg/actuation 1 puff inhalation DAILY Breathing 12/23/17 06/13/24 aerosol inhaler problems budesonide-formoterol HFA 160 1 puff inhalation DAILY Breathing 12/23/17 06/13/24 mcg-4.5 mcg/actuation aerosol problems inhaler tiotropium bromide 18 mcg capsule 1 puff inhalation DAILY Breathing 12/23/17 06/13/24 with inhalation device problems Previous Rx's ?Medication ?Instructions ?Recorded albuterol sulfate 90 mcg/actuation 2 inh inhalation Q4-6H PRN 06/17/17 breath activated powder inhaler shortness of breath or wheezing #1 ea lisinopril 10 mg tablet 10 mg PO DAILY #30 tabs 11/23/21 prednisone 20 mg tablet 20 mg PO BID #10 tabs 03/04/22 hydralazine 10 mg tablet 10 mg PO TID PRN hypertension #30 06/13/24 tabs Allergies Allergy/AdvReac Type Severity Reaction Status Date / Time codeine (CODEINE) Allergy Unknown NA-NAUSEA/V Verified 05/18/19 10:01 [facility]ING [facility] Disclaimer: The information contained in this section may have been updated after the patient was seen, as this information can be updated by other users. Social History Smoking Status: Former smoker alcohol intake: never substance use type: denies use current occupational status: employed Travel in the last 8 weeks: [place] the [place] household members: family housing: house caffeine: Yes Have you lived/traveled outside US in past 30 days?: No Contact w/someone who lives/traveled outside US past 30 days?: No Exposure to someone with infectious disease in past 14 days?: No Do you have a fever (greater than 100.4 F or 38 C)?: No Have you tested positive for COVID-19: No Exposed to someone with COVID-19 in past 14 days?: No Do you have a sore throat?: No Do you have a cough?: No Do you have any weakness?: No Do you have any diarrhea?: No Are you experiencing any unusual bleeding?: No Do you have any muscle aches/pain?: No Do you have any abdominal pain?: No Are you experiencing loss of taste or smell?: No Other Medical History Have you received the Flu Vaccine for this season: Yes Have you received the Pneumonia Vaccine: Yes ROS Obtained: Yes All systems reviewed & no additional complaints except as documented Physical Exam General General appearance: alert and in no apparent distress Head Head exam: atraumatic and normocephalic Eye Eye exam: Present normal appearance, PERRL and EOMI ENT ENT exam: Present normal oropharynx and normal external ear exam Neck Neck exam: Present normal inspection and full ROM Chest Chest inspection: Present normal inspection and symmetric chest wall rise; Absent tenderness Respiratory Respiratory exam: Present normal lung sounds bilaterally; Absent respiratory distress Cardiovascular Cardiovascular exam: Present regular rate and normal rhythm Abdominal Exam Abdominal exam: Present soft; Absent distention, tenderness or guarding Extremities Exam Extremities exam: Present normal inspection; Absent edema or joint swelling Back Exam Back exam: Present normal inspection; Absent tenderness Neurological Exam Neurological exam: Present alert and oriented X3; Absent motor sensory deficit Psychiatric Psychiatric exam: Present normal affect and normal mood Skin Skin exam: Present warm, dry and normal color Lymphatic Lymphatic Findings: no adenopathy Medical Decision Making Medical Records Medical records reviewed: Yes I reviewed the patient's medical records. Screening: Per USPSTF and CDC recommendations, given the prevalence of disease in our region, it is our hospital?s policy to screen for HIV and viral Hepatitis for all patients aged 18 and over and those with ongoing risk factors. Collin Inquiry Pt receiving controlled substance: No Collin was queried for this patient: No Vital Signs: 06/13/24 22:59 06/13/24 23:28 Temperature 97.6 F 98.2 F Temperature Source Oral Pulse Rate 67 Pulse Rate [Right] 70 Respiratory Rate 20 20 Blood Pressure 142/75 H Blood Pressure [Right Arm] 159/89 H Blood Pressure Mean [Right Arm] 112 02 Sat by Pulse Oximetry 94 L Oxygen Delivery Method Room Air Room Air Lab Data Lab results reviewed: Yes I reviewed the patient's lab results. Medical Decision Narrative: 64-year-old male with history of hypertension and COPD presents for asymptomatic hypertension. History was obtained via interactive discussion with patient. On arrival, patient is [afebrile, hemodynamically stable, satting appropriately, alert, oriented x4, GCS 15], moving all extremities spontaneously. Full physical exam performed and significant for no significant physical exam abnormality Differential includes but is not limited to hypertensive urgency, hypertensive urgency, asymptomatic hypertension. On initial evaluation patient's blood pressure is 140 systolic and he is asymptomatic. I saw him yesterday and did a full workup for chest pain, results were unremarkable at that time. I considered obtaining additional blood work, EKG etc. but deemed unnecessary given asymptomatic hypertension. Given this is his second visit with concern about hypertension, I sent a prescription for as needed hydralazine until he can follow-up with his PCP. Patient discharged in stable condition return precautions. Procedures Risk/Benefits of Procedure(s) Were Explained: Yes Critical Care Critical Care Time Critical Care Time: No
[2024-06-13 23:28] VITALS: BP 142/75; PULSE 67; RESP 20; TEMP 36.8; O2SAT 21
== END 2024-06-13 23:32 | disposition home or self-care (01) ==
PROVIDERS: Emergency Provider Emergency Medicine
DX: I10 Essential (primary) hypertension (principal)
CPT/HCPCS: 99283

== ENCOUNTER 2024-12-21 13:14 | Emergency (ER) | payer OTHER, SELFPAY ==
--- NOTE | 2024-12-21 13:16 | ECG_ITS ---
APPROVED REPORT Exam: Resting ECG HR:81 bpm ECG Measurements Heart Rate 81 AXES MI 189 P 67 QRSd 105 QRS 57 QT 374 T 79 QTc 411 Conclusion SINUS RHYTHM WITH SINUS ARRHYTHMIA NORMAL ECG UNCONFIRMED REPORT Electronically signed by : Ramón Cheng, 12/21/2024 15:25:46
[2024-12-21 13:17] VITALS: BP 173/138; RESP 17; TEMP 36.4; O2SAT 95; BMI 30.4
--- OUTSIDE RECORDS SUMMARY | 2024-12-21 13:24 | XMS_ITS | Clinical Summary ---
Author Organization Healthcare Address [address] [id number] Care Team Providers Care Cage Shift Manager Name Role Phone Christian Davis MD Primary Care Provider [phone] Immunizations Immunization Administration Dates Next Due Pneumococcal Polysaccharide PPV23 09/18/2016 Family History Medical History Relation Name Comments Diabetes Brother 1 Other cancer Brother 2 Diabetes Father Emphysema Father Other cancer Father Diabetes Sister Relation Name Status Comments Brother 1 Brother 2 Father Sister Social History Tobacco Use Types Packs/Day Years Used Date Smoking Tobacco: Former Sex and Gender Information Value Date Recorded Sex Assigned at Not on file Legal Sex Male 6:44 PM EDT Gender Identity Not on file Sexual Orientation Not on file Last Filed Vital Signs Vital Sign Reading Time Taken Comments Blood Pressure 121/85 09/09/2018 3:14 PM EDT Pulse 89 09/09/2018 3:14 PM EDT Temperature 36.5 C (97.7 F) 09/09/2018 3:14 PM EDT Respiratory Rate 28 09/09/2018 3:14 PM EDT Oxygen Saturation - - Inhaled Oxygen Concentration - - Weight 95.3 kg (210 lb 1.9 oz) 09/09/2018 3:14 P M EDT Height 182.9 cm (6') 09/09/2018 3:14 PM EDT Body Mass Index 28.5 09/09/2018 3:14 PM EDT Plan of Treatment Not on file Care Teams Cage Shift Manager Relationship Specialty Start Date End Date Christian Davis MD [address] [place] [address] [address] [place] [id number] PCP - General 08/19/20
--- NOTE | 2024-12-21 13:35 | XR_ITS ---
FINAL REPORT CLINICAL HISTORY: CP COMPARISON: 03/24/2018 FINDINGS: CHEST 1 VIEW No acute pulmonary opacity is present. There is no evidence of effusion or pneumothorax. Mediastinum is unremarkable. Heart size is normal. IMPRESSION: No acute abnormality. Reviewed, Interpreted and Dictated by Rambo Diez MD Transcribed by Nila Blankenship Authenticated and [facility]
[2024-12-21 13:41] LABS: Hematocrit 49.7 % (42.0-52.0); Hemoglobin 17.2 g/dL (14.1-18.0); Immature Granulocytes % 0.3 %; Mean Corpuscular HGB Conc 34.6 g/dL (31.8-35.4); Mean Corpuscular Hemoglobin 30.7 pg (27.0-31.2); Mean Corpuscular Volume 88.6 fl (80-94); Nucleated Red Blood Cells % 0 %; Platelet Count 356 K/mm3 (142-424); Red Blood Count 5.61 M/mm3 (4.60-6.20); Red Cell Distribution Width-SD 41.5 fL; White Blood Count 9.0 K/mm3 (4.8-10.8)
[2024-12-21 13:49] LABS: Alanine Aminotransferase 28 U/L (12-78); Albumin Level 4.1 g/dl (3.5-5.0); Albumin/Globulin Ratio 1.2 (1.1-1.8); Alkaline Phosphatase 84 U/L (38-126); Anion Gap 9.6 mEq/L (5-15); Aspartate Amino Transferase 32 U/L (17-59); Bilirubin,Total 0.8 mg/dl (0.2-1.3); Blood Urea Nitrogen 9 mg/dl (9-20); Calcium 8.8 mg/dl (8.4-10.2); Carbon Dioxide 27 mmol/L (22.0-30.0); Chloride 105 mmol/L (98-107); Creatinine Clearance Estimated 106 mL/min (50-200); Creatinine,Serum 1.00 mg/dl (0.66-1.25); Estimated Glomerular Filt Rate 75 ml/min (>60); GFR (African American) 91 ML/MIN (>60); Globulin 3.4 g/dL (1.3-3.2); Glucose 107 mg/dl (74-100); Lipase 107 U/L (23-300); Potassium 3.6 mmoL/L (3.5-5.1); Sodium 138 mmol/L (136-145); Total Protein,Serum 7.5 g/dl (6.3-8.2)
--- NOTE | 2024-12-21 13:53 | ED_ITS ---
<Statement entered by Pio Cheng MD - 12/21/24 15:42> I was consulted by the ESDRAS, and we discussed the complexity of the problems being addressed. I approved the treatment and management plan for this patient's care in the emergency department, thus performing a substantive portion of the medical decision making. Pio Cheng MD, CATALINA, FACEP Discharge Plan Disposition Patient Disposition: Home, Self-Care Condition: Good Prescriptions Prescriptions: No Action albuterol sulfate 90 mcg/actuation aerosol powdr breath activated 2 inh INHALATION Q4-6H PRN (Reason: shortness of breath or wheezing) Qty: 1 2RF albuterol sulfate 90 MCG HFA aerosol inhaler 1 puff inhalation DAILY tiotropium bromide 18 MCG capsule, w/inhalation device 1 puff inhalation DAILY budesonide-formoterol 160-4.5 HFA aerosol inhaler 1 puff inhalation DAILY lisinopril 10 MG tablet 10 mg PO DAILY Qty: 30 1RF prednisone [prednisone] 20 mg tablet 20 mg PO BID Qty: 10 0RF hydralazine 10 mg tablet 10 mg PO TID PRN (Reason: hypertension) Qty: 30 0RF Referrals Follow up/Referrals: Provider,Referral, [Primary Care Provider, Medical] - See instructions Kash Pacheco MD [Staff Physician, Cardiology] - See instructions Raphael Naik II, MD [Staff Physician, Gastroenterology] - See instructions Activity Restrictions/Add. Instructions Additional Instructions/Restrictions: Please return to the emergency department with any worsening signs or symptoms. Please follow-up with your PCP block inspector and GI doctor in the upcoming days. Please continue take all your medication as prescribed. Clinical Impressions Clinical Impression: Chest pain Instructions Patient Instructions: DI for Atypical Chest Pain Print Language Print Language: Kazakh Discharge ED Provider: Pio Cheng HPI General Chief Complaint: Chest Pain Stated Complaint: chest pain Time Seen by Provider: 12/21/24 13:19 Mode of Arrival: Ambulatory Source of Information: Patient Description of Symptoms (Recalled from ER Triage Doc. by RN): Patient complaining of burning in his chest for about 2 weeks, and states when he got up this morning around 2216-0310 he checked his blood pressure and states the bottom number was really high and his arms felt tingly so he became concerned and came to the ER. History of Present Illness HPI narrative: 64-year-old male presents to the emergency department with waxing waning episodes of chest pain that are substernal nonradiating, as he describes as burning , as well as numbness and tingling and heaviness of bilateral arms, this has been ongoing for the last 2 weeks, states the episodes last anywhere from 10 seconds to a minute, they have waxed and waned multiple episodes a day for 2 weeks, patient states he took his blood pressure , this morning, noticed the top number was 170 or 180 , in the setting of his burning chest pain episode that happened when he was doing this prompted his emergency department visit. Patient denies any chest pain currently, chest pain rating at maximal is a 3 or 4 out of 10, no shortness of breath associated, no fever no chills no cough congestion, does not constipation for 2 days, denies any abdominal pain nausea vomiting, no trauma or injury per history, no diarrhea no urinary type symptomatology, patient is a former smoker, denies any alcohol or drug use, other past medical history is consistent with ROSANNE, hypertension, COPD, history of prostatic malignancy follows with urology at the [place]. Initial triage vitals are unremarkable. Please note that above description of symptoms, in this electronic medical record under categorization of recalled from ER triage doctor by RN are reflective of an initial nursing assessment, however, is not reflective of my full history and physical exam that was personally taken and clarified. Consequentially, this preceding description of symptoms, which may include the patient's categorized chief complaint in the EMR, do not reflect my personal clinical impression, and the ultimate description of history of present illness and patient stated complaints should be deferred to this section of the note. Unless stated otherwise or congruent with this section of the note, additional signs, symptoms, or incongruence should be interpreted as inaccurate with my clinical impression. complaint: chest pain Onset (ago): week(s) Related Data Home Medications ?Medication ?Instructions ?Recorded ?Confirmed albuterol sulfate 90 mcg/actuation 1 puff inhalation D AILY Breathing 12/23/17 06/13/24 aerosol inhaler problems budesonide-formoterol HFA 160 1 puff inhalation DAILY Breathing 12/23/17 06/13/24 mcg-4.5 mcg/actuation aerosol problems inhaler tiotropium bromide 18 mcg capsule 1 puff inhalation DA GAY Breathing 12/23/17 06/13/24 with inhalation device problems Previous Rx's ?Medication ?Instructions ?Recorded albuterol sulfate 90 mcg/actuation 2 inh inhalation Q4 -6H PRN 06/17/17 breath activated powder inhaler shortness of breath or wheezing #1 ea lisinopril 10 mg tablet 10 mg PO DAILY #30 tabs 11/06 11/27 prednisone 20 mg tablet 20 mg PO BID #10 tabs hydralazine 10 mg tablet 10 mg PO TID PRN hypertensio n #30 06/13/24 tabs Allergies Allergy/AdvReac Type Severity Reaction Status Date / Time codeine (CODEINE) Allergy Unknown NA-NAUSEA/V Verified 12/21/24 13:22 [facility] Disclaimer: The information contained in this section may have been updated after the patient was seen, as this information can be updated by other users. Social History Smoking Status: Current every day smoker alcohol intake: never substance use type: denies use current occupational status: employed Travel in the last 8 weeks?: Inside the [place] household members: family housing: house caffeine: Yes Have you lived/traveled outside [place] in past 30 days?: No Contact w/someone who lives/traveled outside US past 30 days?: No Exposure to someone with infectious disease in past 14 days?: No Do you have a fever (greater than 100.4 F or 38 C)?: No Have you tested positive for COVID-19?: No Exposed to someone with COVID-19 in past 14 days?: No Do you have a sore throat?: No Do you have a cough?: No Do you have any weakness?: No Do you have any diarrhea?: No Are you experiencing any unusual bleeding?: No Do you have any muscle aches/pain?: No Do you have any abdominal pain?: No Are you experiencing loss of taste or smell?: No Other Medical History Have you received the Flu Vaccine for this season: Yes Have you received the Pneumonia Vaccine: Yes ROS Obtained: Yes All systems reviewed & no additional complaints except as documented Physical Exam General General appearance: alert and in no apparent distress Head Head exam: atraumatic and normocephalic Eye Eye exam: Present normal appearance, PERRL and EOMI Neck Neck exam: Present full ROM; Absent meningismus Chest Chest inspection: Present normal inspection; Absent tenderness Respiratory Respiratory exam: Absent respiratory distress, wheezes, stridor, accessory muscle use or prolonged expiratory phase Cardiovascular Cardiovascular exam: Present normal rhythm and other (Pulses equal and symmetric in bilateral upper and lower extremities) Abdominal Exam Abdominal exam: Absent distention, tenderness, guarding or rebound Extremities Exam Extremities exam: Absent edema Neurological Exam Neurological exam: Present alert Psychiatric Psychiatric exam: Present normal affect Skin Skin exam: Present warm and dry HEART Score HEART Score HEART Score assessment performed?: Yes HEART Score: 3 Critical Care Critical Care Time Critical Care Time: No Medical Decision Making Medical Records Medical records reviewed: Yes I reviewed the patient's medical records. Collin Inquiry Pt receiving controlled substance: No Collin was queried for this patient: No Vital Signs Vital Signs: 12/21/24 13:17 12/21/24 14:32 Temperature 97.6 F Temperature Source Oral Pulse Rate 80 Respiratory Rate 17 18 Blood Pressure 124/86 Blood Pressure [Left Arm] 173/138 H Blood Pressure Mean [Left Arm] 149 Blood Pressure Source Automatic Cuff Blood Pressure Source [Left Arm] Manual Cuff/ Doppler Blood Pressure Position Sitting Blood Pressure Position [Left Arm] Sitting 02 Sat by Pulse Oximetry 95 96 Oxygen Delivery Method Room Air Room Air Lab Data Lab results reviewed: Yes I reviewed the patient's lab results. Labs: Lab Results 12/21/24 13:15: WBC 9.0, RBC 5.61, Hgb 17.2, Hct 49.7, MCV 88.6, MCH 30.7, MCHC 34.6, RDW 12.8, Plt Count 356, MPV 9.9, Neut % (Auto) 57.2, Lymph % (Auto) 31.3, [place] % (Auto) 7.9, Eos % (Auto) 2.2, Baso % (Auto) 1.1, Neut # (Auto) 5.2, Lymph # (Auto) 2.8, [place] # (Auto) 0.7, Eos # (Auto) 0.2, Baso # (Auto) 0.1, PT 11.9, INR 1.08, D-Dimer 0.32, Sodium 138, Potassium 3.6, Chloride 105, Carbon Dioxide 27, Anion Gap 9.6, BUN 9, Creatinine 1.00, Estimated Creat Clear 106, Estimated GFR 75, Est GFR ( Amer) 91, Glucose 107 H, Calcium 8.8, Total Bilirubin 0.8, AST 32, ALT 28, Alkaline Phosphatase 84, Troponin I < 0.01, NT-Pro-B Natriuret Pep < 20.0, Total Protein 7.5, Albumin 4.1, Globulin 3.4 H, Albumin/Globulin Ratio 1.2, Lipase 107 12/21/24 13:15 12/21/24 13:15 Response Orders (Tests/Meds): ORDERS Category Date Time Status XR chest portable Stat Exams 12/21/24 13:35 Completed Complete Blood Count Auto Diff Stat Lab 12/21/24 13:15 Completed Comprehensive Metabolic Panel Stat Lab 12/21/24 13:15 Completed D-Dimer Stat Lab 12/21/24 13:15 Completed Lipase Stat Lab 12/21/24 13:15 Completed NT Pro Brain Natriuretic Pep. Stat Lab 12/21/24 13:15 Completed PT INR [Prothrombin Time INR] Stat Lab 12/21/24 13:15 Completed Troponin I Q3H Lab 12/21/24 16:45 Ordered Troponin I Q3H Lab 12/21/24 19:45 Ordered Troponin I Stat Lab 12/21/24 13:15 Completed MDM Narrative Medical Decision Narrative: 64-year-old male presents to the emergency department with chest pain, that is waxed and waned for 2 weeks, differential diagnose include but not limited to, cardiac arrhythmia, electrolyte disturbance, costochondritis, gastritis, GERD, anxiety reaction, panic attack, PE, pneumothorax among others. I discussed this patient's case with the attending physician Dr. Cheng Will obtain basic laboratory studies, chest x-ray, troponin, proBNP, PT/INR, lipase level, EKG. CMP is unremarkable, initial troponin is less than 0.01, proBNP within normal limits lipase within normal limits CBC unremarkable. Coags within normal limits I reviewed the patient's chest x-ray along the corresponding radiologic report no acute abnormality D-dimer is 0.32, thus ruling out VTE/PE. Patient is currently stable, no signs of chest pain, blood pressures improved, patient is cleared to be discharged home to self-care. Would recommend follow- up with GI for burning sensation, recommend [id number] Pepcid, for possible GI component to the patient's chest pain as well as cardiology follow- up. Discussed these recommendations with the patient at the bedside patient voiced understanding and agreement with the current treatment plan/discharge plan. Of note, [facility], he is currently on acid reflux , medication, no history of cardiac stents,
[2024-12-21 14:01] LABS: NT Pro Brain Natriuretic Pep. < 20.0 pg/mL (0-125)
[2024-12-21 14:02] LABS: Troponin I < 0.01 ng/ml (0.00-0.034)
[2024-12-21 14:15] LABS: INR 1.08 (0.9-1.1); Prothrombin Time 11.9 seconds (10.1-12.5)
[2024-12-21 14:32] VITALS: BP 124/86; PULSE 80; RESP 18; O2SAT 96
[2024-12-21 14:48] LABS: D-Dimer 0.32 ug/mL (0.0-0.5)
[2024-12-21 14:58] VITALS: BP 124/84; PULSE 86; RESP 18; TEMP 36.7; O2SAT 99
== END 2024-12-21 14:58 | disposition home or self-care (01) ==
PROVIDERS: Physician Assistant; Emergency Provider Student in an Organized Health Care Education/Training Program
DX: R07.9 Chest pain, unspecified (principal); I10 Essential (primary) hypertension; F17.210 Nicotine dependence, cigarettes, uncomplicated; J44.9 Chronic obstructive pulmonary disease, unspecified
CPT/HCPCS: 71045; 80053; 83690; 83880; 84484; 85025; 85378; 85610; 93005; 99285

== ENCOUNTER 2025-01-07 11:58 | Outpatient (CLI) | payer MEDICARE, SELFPAY ==
--- NOTE | 2025-01-07 | CA_ITS ---
APPROVED REPORT Exam: Pharmacologic Technologist: Iva Cam Ht: 6 ft 0 in Wt: 222 lbs BSA: 2.23 m2 HR: 93 bpm BP: 108/76 mmHg Rhythm: SR Medical History Cardiac Risk Factors: Smoking Stress Test Details HR Resting HR: 93 bpm Max Heart Rate (APMHR): 155.165289 bpm Target HR (85% APMHR): 131.111547 bpm Recovery HR: 91 bpm BP Resting BP: 108.0/76.0 mmHg Recovery BP: 137.0/84.0 mmHg ECG Resting ECG: SR Stress ECG Conclusion During lexiscan pt experinced hypotension. PAC and PVC noted. Less than .5mm upsloping ST segment changes. Nondiagnostic ECG/lexiscan. Electronically signed by : Rosita Pacheco MD 01/09/2025 00:12:41
--- OUTSIDE RECORDS SUMMARY | 2025-01-07 12:00 | XMS_ITS | Clinical Summary ---
Author Organization Healthcare Address [address] [id number] Care Team Providers Care Divorce Lawyer Name Role Phone Christian Davis MD Primary Care Provider [phone] Immunizations Immunization Administration Dates Next Due Pneumococcal [...] of Treatment Not on file Care Teams Divorce Lawyer Relationship Specialty Start Date End Date Christian Davis MD [address] [place] [address] #1 #1 LATOYA Weldon [id number] PCP - General 08/19/20
--- NOTE | 2025-01-07 13:00 | NM_ITS ---
APPROVED REPORT Exam: Nuclear Stress Test Indication: cp..soa Patient Location: Outpatient Stress Tech: Iva GODDARD Tech:GILLIAN Spear RT(R)(N) Ht: 6 ft 0 in Wt: 225 lbs HR: 96 bpm BP: 108/76 mmHg BSA: 2.24 m2 TID: 1.05 History: chest pain, dyspnea Procedure: Patient received 0.4 mg of intravenous Lexiscan, resting heart rate 96 bpm, resting blood pressure 108/76 mmHg, with Lexiscan maximum heart rate achieved was 108 bpm which is 85 % of the maximum predicted heart rate and blood pressure was 129/73 mmHg. With Lexiscan, patient denied any complaint of chest pain. Cardiac Stress and Resting SPECT Images: Cardiac Stress and Resting SPECT images were obtained using technetium 99m Myoview 32.8 mCi stress and 10.56 mCi at rest. Raw images demonstrate significant soft tissue overlap with the cardiac borders. This may affect the diagnostic interpretation of the study findings. Resting and stress imaging in supine positions demonstrate a medium sized, moderate, fixed perfusion defect in the basal to mid inferior LV bee. This is no longer visualized with prone stress imaging. Findings are suggestive of diaphragmatic attenuation. Gated imaging demonstrates normal global and regional LV systolic function. LVEF is calculated at 62%. Conclusion: Diaphragmatic attenuation is present. No evidence of fixed or reversible perfusion defects. Gated imaging demonstrates normal global and regional LV systolic function. LVEF is calculated at 62%. Electronically signed by : Rosita Pacheco MD 01/09/2025 23:55:05
[2025-01-07 13:30] VITALS: BP 108/76; PULSE 93; RESP 14
[2025-01-07] MEDS: ISOTOPE MYOVIEW (PER STUDY) 1 DOSE IV (13:34)
[2025-01-07] MEDS: SODIUM CHLORIDE 0.9% 10ML SYR (RAD ONLY) 10 ML IV ×2 (13:34)
--- NOTE | 2025-01-07 15:15 | CA_ITS ---
APPROVED REPORT EXAM: Comprehensive 2D, Doppler, and color-flow Echocardiogram Assembler Dc Field Ring: Halle Díaz RVT Ht: 6 ft 0 in Wt: 222lbs BSA: 2.23 BP: 118/79 mmHg Indications: CHEST PAIN,DYSPENA 2D Dimensions IVSd 1.00 cm M: 0.6-1.2 LVEF (Visual) 65.50 % PWd 0.91 cm M: 0.6 - 1.2 LA Volume 24.90 mL LVDd 4.99 cm M: 4.2 - 5.9 LA Volume Index 11.17 mL/m2 (M/F) 16-34 LVDs 3.19 cm M: 2.5 - 4.0 M-Mode Dimensions LA Diam 3.25 cm (1.9-4.0) TAPSE 2.22 (<1.7) LV Diastology E Decel Time 150 (160-240 msec) E/A Ratio 0.8 Aortic Valve ZOIE Index 2.07 cm2/m2 AoV Peak Maxwell. 113.0 (50-130 cm/s) AO Peak GR. 5.10 mmHg AO Mean GR. 3.30 (<5 mmHg) AO VTI 19.1 (18-25 cm) ZOIE (VTI) 4.73 (2.5-4.5 cm2) Mitral Valve MV E Max Maxwell. 58.0 (40-130 cm/s) MV A Velocity 74.0 (40-130 cm/s) E/A Ratio 0.78 MV PHT 44.0 ms Pulmonary Valve PV Peak Velocity 63.0 (50-150 cm/s) Left Ventricle The left ventricle is normal size. Left ventricular systolic function is normal. The left ventricular ejection fraction is within the normal range. There is increased left ventricular wall thickness. There is normal LV segmental wall motion. The left ventricular diastolic function is normal. LVEF is 55% Right Ventricle The right ventricle is mildly dilated. The right ventricular systolic function is normal. Atria The left atrium size is normal. The right atrium size is normal. There is no color Doppler evidence of interatrial shunt. Aortic Valve The aortic valve opens well. There is no hemodynamically significant aortic valvular stenosis. No aortic regurgitation is present. Mitral Valve The mitral valve is normal in structure. No evidence of mitral valve stenosis. Trace mitral regurgitation is present. Tricuspid Valve The tricuspid valve leaflets are thin and pliable. Trace tricuspid regurgitation. There is insufficient TR jet to estimate RVSP. Pulmonic Valve The pulmonary valve is grossly normal in structure. Trace pulmonic valve regurgitation is present. Great Vessels The aortic root is normal in size. IVC is normal in size and collapses >50% with inspiration. Pericardium There is no pericardial effusion. Other Information Study Quality: Fair Conclusion Normal biventricular systolic function. Mild RV dilation. No significant valvular stenosis or regurgitation. Electronically signed by : Rosita Pacheco MD 01/09/2025 23:23:24
== END 2025-01-07 23:59 | disposition home or self-care (01) ==
LOC: RAD 11:59
PROVIDERS: PCP Nurse Practitioner; Visit Provider Nurse Practitioner
DX: I11.9 Hypertensive heart disease without heart failure (principal); I49.1 Atrial premature depolarization; I49.3 Ventricular premature depolarization; I95.9 Hypotension, unspecified; R94.31 Abnormal electrocardiogram [ECG] [EKG]
CPT/HCPCS: 78452; 93017; 93018; 93306; A9502; J2785